=== PATIENT | male | born 2000 | race Caucasian/White ===

== ENCOUNTER 2019-12-18 22:05 | Emergency (ER) | payer BC ==
[~2019-12-18] VITALS: Ht 185.4 cm; Wt 70.9 kg
[2019-12-18] MEDS ORDERED: IBUP-1022 PO (23:07)
[2019-12-18 23:14] VITALS: BP 137/67
--- NOTE | 2019-12-19 00:57 | REP ---
Clinical: Trauma. Fall . Technique: AP, lateral, bilateral oblique views left ankle . Findings: Mild swelling noted. No acute fracture or dislocation. Skeletal structures and joint spaces are intact and normal. Ankle mortise appears stable. No subcutaneous emphysema or radiodense foreign body. Impression: Normal left ankle radiograph series. No acute fracture or dislocation. Electronically Signed by Deep Junior MD 12/19/2019 12:49 A
== END 2019-12-18 23:25 | disposition home or self-care (01) ==
LOC: M ED 22:05
DX: S93.402A Sprain of unspecified ligament of left ankle, initial encounter (principal); W19.XXXA Unspecified fall, initial encounter; Y92.410 Unspecified street and highway as the place of occurrence of the external cause

== ENCOUNTER 2021-11-21 22:03 | Emergency (ER) | payer BC ==
[~2021-11-21] VITALS: Ht 185.4 cm; Wt 72.7 kg
[~2021-11-21 22:03] MED LIST: IBUP-1022 PO
[2021-11-21 22:04] VITALS: BP 124/69
== END 2021-11-22 02:15 | disposition left against medical advice (07) ==
LOC: M ED 22:03
DX: Z53.21 Procedure and treatment not carried out due to patient leaving prior to being seen by health care provider (principal)

== ENCOUNTER 2024-02-24 23:59 | Emergency (ER) | payer BC, SELFPAY ==
[~2024-02-24] VITALS: Ht 185.4 cm; Wt 70.2 kg
[2024-02-25] MEDS: IBUPROFEN 600MG TAB PO ONE (03:03)
[2024-02-25 03:59] VITALS: BP 120/72; TEMP 97.2; O2SAT 98
== END 2024-02-25 04:03 | disposition home or self-care (01) ==
LOC: M ED 23:59
DX: S29.011A Strain of muscle and tendon of front wall of thorax, initial encounter (principal); Y92.9 Unspecified place or not applicable; Y93.9 Activity, unspecified; Y99.9 Unspecified external cause status; F17.210 Nicotine dependence, cigarettes, uncomplicated; F10.10 Alcohol abuse, uncomplicated; Z88.1 Allergy status to other antibiotic agents; Z88.8 Allergy status to other drugs, medicaments and biological substances